=== PATIENT | female | born 1960 | race Caucasian/White ===

== ENCOUNTER 2024-02-27 12:08 | Emergency (ER) | payer MEDICARE, OTHER, SELFPAY ==
[2024-02-27 12:30] VITALS: BP 126/67
[2024-02-27 13:11] LABS: % Basophils 0.2 % (0-2); % Immature Granulocytes 0.2 % (0-0.5); % Lymphocytes 9.1 % (20.5-51.1); % Monocytes 14.8 % (1.7-9.3); % Neutrophils 75.7 % (42.2-75.2); Absolute Lymphocytes 0.4 10^3/uL (1.2-3.4); Absolute Monocytes 0.6 10^3/uL (0.1-0.6); Absolute Neutrophils 3.1 10^3/uL (1.4-6.5); Hematocrit 38.2 % (37.0-47.0); Hemoglobin 13.2 g/dL (12.0-16.0); Mean Corp Hgb Conc. 34.6 g/dL (33.0-37.0); Mean Corpuscular Hgb 29.7 pg (27.0-31.0); Mean Corpuscular Volume 85.8 fL (81.0-99.0); Nucleated Red Blood Cells % 0 %; Platelet Count 212 10^3/uL (130-400); Red Blood Cell Count 4.45 10^6/uL (4.20-5.40); Red Cell Dist. Width 13.6 % (11.5-14.5); White Blood Cell Count 4.1 10^3/uL (4.8-10.8)
[2024-02-27 13:15] LABS: Lactic Acid 0.5 mmol/L (0.7-2.0)
[2024-02-27 13:17] LABS: COVID-19 Antigen Negative (Negative)
[2024-02-27 13:19] LABS: ALT (SGPT) 24 U/L (0-35); AST (SGOT) 31 U/L (14-36); Albumin 4.2 g/dl (3.5-5.0); Alkaline Phosphatase 86 U/L (38-126); Blood Urea Nitrogen 11 mg/dl (7-17); Calcium 8.7 mg/dl (8.4-10.2); Carbon Dioxide 23 mmol/L (22-30); Chloride 97 mmol/L (98-107); Glucose 110 mg/dl (70-99); Potassium 3.9 mmol/L (3.5-5.1); Sodium 132 mmol/L (135-145); Total Bilirubin 1.2 mg/dl (0.2-1.3); Total Protein 6.8 g/dl (6.3-8.2); eGFR > 60.00
[2024-02-27 15:19] VITALS: BP 123/90
[2024-02-27 18:39] VITALS: BP 138/77
[2024-02-27] MEDS: NSS 1000 IV (18:45)
--- NOTE | 2024-02-27 18:46 | ED.GENMED ---
History of Present Illness
General
Chief Complaint: Fatigue
Source: patient
Exam Limitations: none
Time Seen by Provider: 02/27/24 18:27
Travel History
Have you had any contact with someone who has COVID-19?: No
Do you have any symptoms of coronavirus? Fever > 100 degrees, chills, cough, shortness of breath, sore throat, loss of taste or smell, muscle aches, or headache?: No
History of Present Illness
History of Present Illness:
This is a 64 year old female that comes in with c/o feeling dehydrated. States that she started yesterday to not feel well. states that she has decreased urine output today and that she has had a low grade fever. State that she has a headache and
dizziness. States that she has nausea and vomiting. Denies any chills, chest pain, SOB, abd pain, diarrhea urinary burning.
Past History
Past History
ED Past Medical History: Hypothyroidism
ED Past Surgical History: and Gynecological (Vaginal cyst removed)
Social History
Tobacco: Non-smoker
Alcohol: None
Drug: None
Personal:
Living: with family
Review of Systems
Review of Systems
All Other Systems: ROS reviewed and negative except as documented in HPI and ROS
Constitutional: Reports fever; Denies chills
EENT: Reports no symptoms
Respiratory: Denies cough or trouble breathing
Cardiac: Denies chest pain
ABD/GI: Reports nausea and vomiting; Denies abdominal pain or diarrhea
: Reports other (Decreased urine output); Denies dysuria, frequency or urgency
Musculoskeletal: Reports no symptoms
Skin: Reports no symptoms
Neurological: Reports dizzy and headache
Psychiatric: Reports no symptoms
Phy Exam
General Physical Exam
General Presentation: no apparent distress
General age: appears stated age
General Skin: warm and dry
General Habitus: normal
General Mental: alert
General Hydration: dry mucous membranes
ENT Exam
ENT Exam: TM's normal, pharynx normal and neck supple
Eye Exam
Eye Exam: EOMI
Cardiovascular Exam
Cardiovascular Exam: regular rate/rhythm, no edema and normal peripheral pulses
Pulmonary Exam
Pulmonary Exam: lungs clear, no respiratory distress, no rales, chest non tender, no crackles, no rhonchi, no wheezing and other (Dry cough noted)
Gastrointestinal Exam
Gastrointestinal Exam: normal bowel sounds, non tender, soft, no organomegaly, no pulsatile mass and non distended
Musculoskeletal Exam
Musculoskeletal Exam: full ROM and no edema
Skin Exam
Skin Exam: normal color, warm/dry, no rash and no petechia
Psychiatric Exam
Psychiatric Exam: normal mood/affect
Course
Orders/Labs/Results
Orders:
Orders
02/27/24 12:34
Electrocardiogram (*1) Urgent
Reason for Study: Fatigue / Weakness
EKG- Treatment ONCE
02/27/24 12:51
COVID-19 Antigen Urgent
Source: Nasal Swab
Complete Blood Count/With Diff Urgent
Comprehensive Metabolic Panel Urgent
Lactic Acid Urgent
Blood Culture Urgent
MARGARITA Source: Blood/Venous
Specimen Description:
Influenza A+B Rapid Molecular Urgent
MARGARITA Source: Nasal Swab
Specimen Description:
02/27/24 18:45
0.9% Sodium Chloride 1000 ml [Nss] 1,000 ml IV BOLUS
02/27/24 18:46
Acetaminophen [Tylenol] 1,000 mg PO NOW STA
Ketorolac [Toradol] 30 mg IV NOW STA
Ondansetron Injectable [Zofran] 4 mg IV NOW STA
CR Chest - 2 Views Urgent
Comment:
Reason For Exam: fever,
Abnormal Lab Results
02/27/24
12:51
WBC 4.1 L 10^3/uL
(4.8-10.8)
Absolute Lymphs (auto) 0.4 L 10^3/uL
(1.2-3.4)
Neutrophils % 75.7 H %
(42.2-75.2)
Lymphocytes % 9.1 L %
(20.5-51.1)
Monocytes % 14.8 H %
(1.7-9.3)
Sodium 132 L mmol/L
(135-145)
Chloride 97 L mmol/L
(98-107)
Glucose 110 H mg/dl
(70-99)
Lactic Acid 0.5 L mmol/L
(0.7-2.0)
02/27/24 12:51
02/27/24 12:51
WBC very slightly low. Glucose nonfasting. Lactic acid normal at 0.5, COVID is negative. Positive for influenza A
Vital Signs
Initial and Last Documented VS:
Initial Vital Signs
Temp Pulse Resp BP Pulse Ox
100.4 F H 98 16 126/67 98
02/27/24 12:30 02/27/24 12:30 02/27/24 12:30 02/27/24 12:30 02/27/24 12:30
Last Documented Vital Signs
Temp Pulse Resp BP Pulse Ox
99.9 F 83 18 138/70 100
02/27/24 18:41 02/27/24 19:46 02/27/24 19:46 02/27/24 19:00 02/27/24 19:00
MDM/Problems Addressed
Differential Diagnosis Includes:
COVID, Influenza, PNA
MDM/Problems Addressed:
This is a 64 year old female that comes in with c/o feeling dehydrated. States that her urine output was decreased today and that she has a low grade fever. States that this started yesterday.
Will check labs, Chest x-ray, Give IV fluids, Tylenol and Toradol. Explained to patient that she has the Influenza A and will be able to be discharged after treatment.
Back into see patient. Patient is feeling some better. Reviewed the option of using Tamaflu as she is within the 24 hour window. Patient is going to take the Tamaflu. Patient can also alternate with Ibuprofen and Tylenol for fever. Encouraged
patient to increase her water intake. Follow up with the family doctor. Return wit any concerns.
Chronic conditions affecting care:
NA
Acute Exacerbation and/or Progression of Chronic Illness:
NA
*Radiology
Radiology exam reviewed: radiology read reviewed (Chest-NO acute disease of the chest)
*Pulse Oximetry
Patient hypoxic: no
*EKG
Interpreted by ED Provider?: Yes
Heart Rate: 91
Rate: normal
Rhythm: sinus
[place]: normal axis
Interval: normal interval
QRS Pattern: normal QRS
Ischemia: non-specific ST changes (V4,V5, V6, Checked by Dr. Gaona)
*Cigarette Vendor Interpretation
Rate: normal
Heart Rate: 94
*Critical Care Note
Total Time (30-74mins, 75-104mins- exclusive of procedures): Not Applicable
ED Attending Note
-
Portions of this chart may have been created with voice recognition software.� Occasional wrong word or��sound alike� substitutions may have occurred due to the inherent limitations of voice recognition software.
Discharge Plan
Departure
Patient Disposition: Home (Routine Discharge)
Date of Disposition: 02/27/24
Time of Disposition: 20:39
Patient with high blood pressure during this ER visit?: Yes
Condition: Good
Covid-19: Negative COVID-19
Discharge Problem:
Influenza A
Instructions: Flu, Adult ED, BLOOD PRESSURE
Prescriptions:
New
ondansetron 4 mg tablet,disintegrating
4 mg PO Q8H PRN (Reason: nausea and vomiting) Qty: 7 0RF
oseltamivir [Tamiflu] 75 mg capsule
75 mg PO BID 5 Days Qty: 9 0RF
Referrals:
Anel Mcdonald MD [Family Provider] - Follow up in 2-3 days
Activity Restrictions/Additional Instructions:
As discussed, you are negative for COVID but your have Influenza A. This is a viral syndrome. Please increase your water intake to 8-8oz glasses daily. Please eat a well balance diet. You may alternate with Tylenol and Ibuprofen for fever and body
aches. You have also been given your first dose of Tamiflu here and a prescription has been sent to your Pharmacy. You have also had a prescription for Zofran to help with any nausea/vomiting. Please follow up with the family doctor for recheck. IF
YOU HAVE ANY OTHER CONCERNS PLEASE RETURN TO THE EMERGENCY ROOM.
Interventions
Interventions:
*Risk Screen - Suicide Last Done: 02/27/24 18:40
*General Assessment Last Done: 02/27/24 18:40
*Neglect/Abuse Screening Last Done: 02/27/24 18:40
*ED COVID-19 Vaccine History Last Done: 02/27/24 12:30
Discharge Date and Time
Print Language: LATVIAN
[2024-02-27 19:00] VITALS: BP 138/70
[2024-02-27] MEDS: TYLENOL 1000 MG PO (19:37)
[2024-02-27] MEDS: ZOFRAN 4 MG IV (19:38)
[2024-02-27] MEDS: TORADOL 30 MG IV (19:38)
[2024-02-27] MEDS: TAMIFLU 75 MG PO (20:50)
[2024-02-27 21:00] VITALS: BP 113/59
== END 2024-02-27 21:00 | disposition home or self-care (01) ==
LOC: EMR 12:08
PROVIDERS: Emergency Medicine; EMERGENCY PHYSICIAN Emergency Medicine; FAMILY PHYSICIAN Family Medicine
DX: J10.1 Influenza due to other identified influenza virus with other respiratory manifestations (principal); R11.2 Nausea with vomiting, unspecified; R42 Dizziness and giddiness; R51.9 Headache, unspecified; Z11.52 Encounter for screening for COVID-19; R03.0 Elevated blood-pressure reading, without diagnosis of hypertension; E03.9 Hypothyroidism, unspecified
CPT/HCPCS: 99284; 96374; 96375; 96361; 71046; 80053; 83605; 85025; 87040; 87502; 87811; 93005

== ENCOUNTER 2025-07-26 14:54 | Emergency (ER) | payer MEDICARE, OTHER, SELFPAY ==
[2025-07-26 15:06] VITALS: BP 124/74
[2025-07-26] MEDS: ADACEL 0.5 ML IM (16:27)
[2025-07-26] MEDS: PERCOCET 5/325 1 TABLET PO (16:27)
--- NOTE | 2025-07-26 18:25 | ED.GENMED ---
History of Present Illness
General
Chief Complaint: Musculo-Skeletal Complaint
Source: patient
Exam Limitations: none
Time Seen by Provider: 07/26/25 15:37
Nursing documentation reviewed up to this point in time: agreed with
History of Present Illness
History of Present Illness:
Patient is a 65-year-old female who presents to the emergency department with left knee pain after mechanical fall this morning. Patient states that she tripped and fell outside falling directly on her left knee. She denies any head strike or loss
of consciousness. She states that she had been able to bear weight throughout the day however is experiencing an increasing amount of discomfort in her left knee/lower leg prompting visit to the emergency department. Weightbearing has become much
more difficult throughout the day. She states the pain is so intense that she feels 'like she is going to pass out'.
She denies any numbness/tingling in left lower extremity. She denies any pain in her right lower extremity. No head or neck pain. No other concerns today.
She was seen at an urgent care facility prior to arrival to ED however their x-ray machine was broken.
Patient is not on any oral anticoagulation. She is unsure when her last tetanus vaccine was.
Past History
Past History
ED Past Medical History: Hypothyroidism
ED Past Surgical History: and Gynecological (Vaginal cyst removed)
Social History
Tobacco: Non-smoker
Alcohol: None
Drug: None
Personal:
Living: with family
Review of Systems
Review of Systems
Allergies reviewed?: Yes
All Other Systems: ROS reviewed and negative except as documented in HPI and ROS
Phy Exam
Physical Exam
Physical Exam:
Vitals: Patient's vital signs are stable
General: Patient is very uncomfortable appearing due to pain.
Skin: Ecchymoses and mild abrasion just inferior to left knee
Head: Normocephalic, atraumatic
Eyes: Sclera nonicteric.
Throat: Protecting airway
Neck: Normal ROM, no cervical spine tenderness
Cardiac: Regular rate
Pulm: Normal respiratory effort
.
Abdomen: Nondistended.
Extremities: Area of ecchymoses and swelling with significant reproducible tenderness just inferior to left knee. 0.5 cm abrasion w/o active bleeding No bony tenderness of left ankle or left hip. Patellar tendon intact. 2+ palpable DP pulse in
left lower extremity with normal sensation. No obvious deformity of left lower extremity. No notable joint laxity or joint line tenderness. Right lower extremity and bilateral upper extremities atraumatic and nontender full range of motion
Neuro: AAOx3. Grossly intact.
Psychiatric: Normal affect.
Course
Orders/Labs/Results
Orders:
Orders
07/26/25 15:09
Knee, Left 4 or More Views [CR Knee - Left 4 Or More View*] Urgent
Comment:
Reason For Exam: injury
07/26/25 16:12
Oxycodone/Acetaminophen [Percocet 5/325] 1 tablet PO NOW STA
Tetanus/Diphth/Acelpertussis [Adacel] 0.5 ml IM .ONCE ONE
07/26/25 16:21
Lower Ext Left wo Contrast CT [CT Lower Ext W/o Iv Cont Lt] Urgent
Comment:
Reason For Exam: Pain left groin, left knee unable to weight bear
07/26/25 19:15
José Wrap Left-Treatment ONCE
Crutches-Treatment ONCE
Knee Immobilizer Left-Treatmen ONCE
Vital Signs
Initial and Last Documented VS:
Initial Vital Signs
Temp Pulse Resp BP Pulse Ox
97.4 F 84 16 124/74 99
07/26/25 15:06 07/26/25 15:06 07/26/25 15:06 07/26/25 15:06 07/26/25 15:06
Last Documented Vital Signs
Temp Pulse Resp BP Pulse Ox
97.4 F 84 16 124/74 99
07/26/25 15:06 07/26/25 15:06 07/26/25 15:06 07/26/25 15:06 07/26/25 18:25
MDM/Problems Addressed
Differential Diagnosis Includes:
Not limited to: Contusion, hematoma, tibial plateau fracture, patellar fracture, ligamentous injury of knee, hemarthrosis, etc.
MDM/Problems Addressed:
65-year-old female presenting with left lower leg injury after mechanical fall earlier today. Patient tripped and fell landing directly on left knee. She�s had progressively worsening pain, swelling, and bruising throughout the day with now
difficulty ambulating. No head strike or loss of consciousness. No other areas of pain.
Vitals stable. On exam, she has no evidence of head trauma. Neurologically intact. There is an area of notable edema and ecchymosis just inferior to left knee with significant tenderness. No obvious deformity. No obvious joint effusion. No clear
joint laxity however exam is somewhat limited secondary to significant pain. Neurovascularly intact.
Prior to my evaluation, an x-ray of the knee was obtained without any evidence of acute fracture, dislocation, or joint effusion.
While symptoms may be secondary to hematoma/contusion - given patients significant degree of pain a CT scan was obtained to r/o underlying fracture. Patient given percocet for pain.
CT scan shows no evidence of fracture however does note hematoma just anterior to proximal tibia.
Minor abrasion/laceration irrigated thoroughly w/ normal saline. No indication for primary closure.
Suspect pain likely secondary to hematoma and/or bone contusion. No noticeable expansion of hematoma in ED. Patient is not on any anticoagulation.
Will place patient in knee immobilizer and provide crutches to assist with weight-bearing. Advised rest, ice, elevation, and orthopedic follow-up. Patient will monitor for any significant changes in symptoms or evidence of infection. Stable for
discharge home.
Chronic conditions affecting care:
N/A
Acute Exacerbation and/or Progression of Chronic Illness:
N/A
*Radiology
Radiology exam reviewed: preliminary read by ED provider (Left knee x-ray read by me-no acute fracture) and radiology read reviewed
*Pulse Oximetry
SaO2: 99
Oxygen Mode of Delivery: Room air
Patient hypoxic: no
*EKG
Interpreted by ED Provider?: NA
*Manager Managed Care Interpretation
Rate: Manager Managed Care- N/A
*Critical Care Note
Total Time (30-74mins, 75-104mins- exclusive of procedures): Not Applicable
ED Attending Note
-
Portions of this chart may have been created with voice recognition software.� Occasional wrong word or��sound alike� substitutions may have occurred due to the inherent limitations of voice recognition software.
Discharge Plan
Departure
Patient Disposition: Home (Routine Discharge)
Date of Disposition: 07/26/25
Time of Disposition: 19:28
Patient with high blood pressure during this ER visit?: Yes
Condition: Good
Discharge Problem:
Injury of left leg, Hematoma of left lower extremity
Instructions: Hematoma
Prescriptions:
New
oxycodone-acetaminophen [Percocet] 5-325 mg tablet
1 tab PO Q6HPRN PRN (Reason: pain) Qty: 5 0RF
No Action
ondansetron 4 mg tablet,disintegrating
4 mg PO Q8H PRN (Reason: nausea and vomiting) Qty: 7 0RF
oseltamivir [Tamiflu] 75 mg capsule
75 mg PO BID 5 Days Qty: 9 0RF
Referrals:
Anel Mcdonald MD [Family Provider, Family Practice]
Dhruv Girard MD [Active, Orthopedics] - Next open appointment
Activity Restrictions/Additional Instructions:
RETURN TO THE EMERGENCY DEPARTMENT ANY FEVER, CHILLS, SIGNS OF INFECTION, INTRACTABLE PAIN, SIGNIFICANT WORSENING IN SWELLING OR BRUISING OF LEFT LOWER LEG, LOSS OF SENSATION IN LEFT LEG OR FOOT, OR ANY OTHER CONCERNS
- As discussed, the imaging of your left lower leg showed no evidence of acute fracture. However you were found to have a hematoma.
- Please continue to ice, elevate your left leg. You can take Tylenol and/or Motrin as needed for pain. A prescription for a few Percocet I been sent to your pharmacy which you can take for intractable pain. Please be aware that this contains
Tylenol use to factor into your total daily dose. This may cause drowsiness you should not take prior to driving or when alone
- Keep knee in immobilizer and use crutches and/or walker as needed for ambulation.
- Follow-up with orthopedics for further evaluation/management to ensure that your symptoms are improving. You may require further imaging.
Monitor your symptoms closely return to the emergency department with any acute worsening/new symptoms or any other concerns
Interventions
Interventions:
*Risk Screen - Suicide Last Done: 07/26/25 15:06
*General Assessment Last Done: 07/26/25 17:05
*Neglect/Abuse Screening Last Done: 07/26/25 15:06
*ED- Fall Risk Assessment Last Done: 07/26/25 17:05
*Nursing Disposition Last Done: 07/26/25 20:00
ED-Musculoskeletal Assessment Last Done: 07/26/25 17:05
Discharge Date and Time
Discharge Date/Time: 07/26/25 20:00
Print Language: PORTUGUESE
== END 2025-07-26 20:00 | disposition home or self-care (01) ==
LOC: EMR 14:54
PROVIDERS: EMERGENCY PHYSICIAN Emergency Medicine; FAMILY PHYSICIAN Family Medicine
DX: S80.12XA Contusion of left lower leg, initial encounter (principal); S89.92XA Unspecified injury of left lower leg, initial encounter; W01.0XXA Fall on same level from slipping, tripping and stumbling without subsequent striking against object, initial encounter; Z23 Encounter for immunization; E03.9 Hypothyroidism, unspecified
CPT/HCPCS: 99283; 29505; 90471; 73564; 73700; 90715